=== PATIENT | male | born 1950 | race Caucasian/White ===

== ENCOUNTER 2023-03-11 08:55 | Inpatient (IN) | payer MEDICARE, OTHER ==
[2023-03-09 16:13] LABS: BASOPHILS % (AUTO) 0.4 % (0-1); EOSINOPHILS # (AUTO) 0.1 X10'3 (0-0.9); EOSINOPHILS % (AUTO) 1.5 % (0-6); LYMPHOCYTES # (AUTO) 1.3 X10'3 (1.1-4.8); LYMPHOCYTES % (AUTO) 18.5 % (21-51); MEAN CORPUSCULAR HEMOGLOBIN 28.6 PG (27.0-31.0); MEAN CORPUSCULAR HGB CONC 33.5 g/dL (33.0-36.5); MEAN CORPUSCULAR VOLUME 85.4 FL (78-98); MEAN PLATELET VOLUME 6.5 FL (7.4-10.4); MONOCYTES # (AUTO) 0.6 X10'3 (0-0.9); MONOCYTES % (AUTO) 8.6 % (2-12); NEUTROPHILS # (AUTO) 4.8 X10'3 (1.8-7.7); PRE OP HEMATOCRIT 45.4 % (42.0-52.0); PRE OP HEMOGLOBIN 15.2 g/dL (14.0-17.9); PRE OP PLATELET COUNT 242 X10'3 (140-440); RED BLOOD COUNT 5.32 X10'6 (4.70-6.10); RED CELL DISTRIBUTION WIDTH 15.1 % (11.5-14.5)
[2023-03-09 16:14] LABS: CLARITY,URINE CLEAR (Clear); COLOR,URINE YELLOW (Yellow); GLUCOSE, URINE >=1000 mg/dl (Neg); KETONES,URINE NEGATIVE (Neg); LEUKOCYTE ESTERASE ,URINE NEGATIVE (Neg); NITRITES, URINE NEGATIVE (Neg); OCCULT BLOOD,URINE NEGATIVE (Neg); PROTEIN,URINE NEGATIVE (Neg); UROBILINOGEN,URINE 0.2 E.U/dL (0.2-1.0)
[2023-03-09 16:27] LABS: HEMOGLOBIN A1C 6.1 % (4.5-6.2)
[2023-03-09 16:29] LABS: ALBUMIN 3.6 G/DL (3.4-5.0); ALKALINE PHOSPHATASE 104 IU/L (46-116); BLOOD UREA NITROGEN 15 MG/DL (7-18); BUN/CREATININE RATIO 17.4 (10.0-20.0); CALCIUM 9.1 MG/DL (8.5-10.1); CHLORIDE 105 MMOL/L (99-107); CREATININE 0.86 MG/DL (0.60-1.10); PRE OP ALT 20 U/L (30-65); PRE OP ANION GAP 10 (8-16); PRE OP AST 11 U/L (10-37); PRE OP BILIRUB, TOTAL 0.3 MG/DL (0.0-1.0); PRE OP GLUCOSE 101 MG/DL (70-104); PRE OP SODIUM 142 MMOL/L (135-145); TOTAL CARBON DIOXIDE 26.9 MMOL/L (24-32); TOTAL PROTEIN 7.2 G/DL (6.4-8.2); eGFR 87 ML/MIN
[2023-03-09 16:41] LABS: RBC,URINE NONE SEEN /HPF (0-2); UA COLLECTION TYPE CLN CATCH MIDSTREAM; WBC,URINE NONE SEEN /HPF (0-4)
[2023-03-09 16:42] LABS: BACTERIA,URINE NONE SEEN /HPF (Neg); SQUAMOUS EPITHELIAL CELL,UR FEW /LPF (FEW)
[~2023-03-11] VITALS: Ht 175.3 cm; Wt 96.5 kg
[2023-03-11] VITALS (21 sets, daily range): BP systolic 123–150; BP diastolic 63–84
[~2023-03-11 08:55] MED LIST: AMLO2.5T2 PO; DULA0.75 SQ; EMPA1TAB30 PO; FLO0.4C PO; HYDR-3973 PO; LISI20TA28 PO; LORA-269 PO; ROSU10TA2 PO; ZOLP5TAB8 PO; ceFOXitin 2GM-NS 100mL ADDvant 100 ML IV ONE; famotidine 20mg tablet PO ONE; ringers solution, lacted 1,000 ML IV SCH
[2023-03-11] MEDS ORDERED: morphine 2 MG/ML inj. syringe IV PRN (09:45)
[2023-03-11] MEDS ORDERED: meperidine/PF 25mg/ml syringe IV PRN ×3 (09:45)
[2023-03-11] MEDS ORDERED: ondansetron/PF 4mg/2ml inj IV PRN (09:45)
[2023-03-11] MEDS ORDERED: ringers solution, lacted 1,000 ML IV SCH (09:45)
[2023-03-11] MEDS ORDERED: proCHLORperazine 10 MG/2 ml inj IV PRN (09:45)
[2023-03-11] MEDS ORDERED: morphine 4 MG/ML inj SYRINge IV PRN (09:45)
[2023-03-11] MEDS ORDERED: Potassium Cl inj 20 MEQ in normal saline 1000ml 990 ML IV SCH (10:20)
[2023-03-11] MEDS ORDERED: naloxone 0.4 mg/ml inj IV PRN (10:20)
[2023-03-11] MEDS ORDERED: BUPIVAcaine/PF 2.5 mg/ml (0.25%) 30ml vial ONE ×2 (11:17→11:22)
[2023-03-11] MEDS ORDERED: ceFAZolin 1000mg inj ONE (11:17)
[2023-03-11] MEDS ORDERED: fentaNYL /PF 50mcg/ml 5ml ampule ONE (11:21)
[2023-03-11] MEDS ORDERED: midazolam 1 mg/ML 2ml injection ONE (11:21)
[2023-03-11] MEDS ORDERED: BUPIVACAINE liposomal/PF 13.3 MG/ML vial IM ONE (11:22)
[2023-03-11] MEDS ORDERED: rocuronium 10mg/ml inj IV ONE ×2 (11:22→12:33)
[2023-03-11] MEDS ORDERED: LIDOcaine 1%/PF 5ML 10 MG/ML VIAL ONE (11:22)
[2023-03-11] MEDS ORDERED: propofol inj 20 ML IV ONE (11:22)
[2023-03-11] MEDS ORDERED: sevoflurane 250ml liquid IH ONE (11:32)
[2023-03-11] MEDS ORDERED: dexamethasone sod phosphate 10mg/ml inj ONE (11:32)
[2023-03-11] MEDS ORDERED: acetaminophen 1,000mg/100ml IV 100 ML IV ONE (12:20)
[2023-03-11] MEDS ORDERED: ondansetron/PF 4mg/2ml inj ONE (13:47)
[2023-03-11] MEDS ORDERED: sugammadex 200mg/2ml injection IV ONE (13:53)
--- NOTE | 2023-03-11 14:10 | NUR ---
Received from OR via HOSPITAL BED, accompanied by Anesthesiologist DR STRANGE and report given by Anesthesiologist. PT IS GROGGY BUT RESPONDS TO VERBAL STIMULI AND FOLLOWS COMMANDS. PT PLACED ON BEDSIDE MONITOR, VSS. PT IS IN SR WITH RATE IN 70'S. PT RECEIVING 8L O2 TO MASK AND TOLERATING WELL, WILL TITRATE DOWN PT TOLERATES. PT HAS 20G PIV TO LEFT WRIST WITH LR INFUSING ORDERED. PT HAS MIDLINE ABD DRESSING WITH SCANT DRAINAGE NOTED AND HAS BEEN MARKED. PT DENIES PAIN AT THIS TIME AND IS RESTING COMFORTABLY. WILL CONTINUE TO ASSESS.
[2023-03-11] MEDS: HYDROmorph/NS 0.2 mg/ml PCA 100 ML IV SCH ×6 (14:56→23:00)
--- NOTE | 2023-03-11 16:15 | NUR ---
PATIENT HAS MET ALL CRITERIA FOR TRANSFER TO THE SURGICAL FLOOR. VSS. DRESSINGS INTACT. BED LOW, CALL LIGHT PRESENT AND 2 RAILS UP. RN PRESENT TO ACCEPT CARE OF PATIENT AND REPORT HAS BEEN CALLED TO ARIN GUZMAN. ALL QUESTIONS ANSWERED TO ACCEPTING RN.
[2023-03-11] MEDS: normal saline 1000ml 1,000 ML IV SCH ×2 (16:34→19:54)
--- NOTE | 2023-03-11 18:30 | NUR ---
Problems reprioritized. Patient report given, questions answered & plan of care reviewed with SHAN Bhagat.
--- NOTE | 2023-03-11 18:43 | NUR ---
Patient in room [facility]. I have received report from Saskia TORREZ and had the opportunity to ask questions and assume patient care.
[2023-03-11] MEDS: sennosides/docusate sodium tablet PO SCH (19:51)
[2023-03-11] MEDS: docusate sod 100mg capsule PO SCH (19:51)
[2023-03-11] MEDS: cefoxitin sod inj 2,000 MG in normal saline 100ml IV soln 100 ML IV SCH (21:03)
[2023-03-12] MEDS: HYDROmorph/NS 0.2 mg/ml PCA 100 ML IV SCH ×10 (01:00→19:00)
[2023-03-12] MEDS: cefoxitin sod inj 2,000 MG in normal saline 100ml IV soln 100 ML IV SCH ×3 (04:10→20:20)
[2023-03-12] MEDS: ondansetron/PF 4mg/2ml inj IV PRN ×3 (04:14→21:18)
[2023-03-12] MEDS: potassium Cl 20mEq in NS 1,000 ML IV SCH ×4 (04:20→17:59)
--- NOTE | 2023-03-12 04:23 | NUR ---
PATIENT APPEARS STABLE. Able to pass gas. Dilaudid cadd controlling pain well 4-5. Abdominal dressing minimal drainage observed. Tolerating clear liquid diet.
--- NOTE | 2023-03-12 04:25 | NUR ---
Zofran given x1 for nausea
[2023-03-12 06:00] VITALS: BP 144/73
--- NOTE | 2023-03-12 06:28 | NUR ---
Problems reprioritized. Patient report given, questions answered & plan of care reviewed with Carmen TORREZ.
[2023-03-12 06:37] LABS: ALBUMIN 3.1 G/DL (3.4-5.0); ANION GAP 9 (8-16); BASOPHILS % (AUTO) 0 % (0-1); BLOOD UREA NITROGEN 16 MG/DL (7-18); BUN/CREATININE RATIO 15.1 (10.0-20.0); CALCIUM 8.9 MG/DL (8.5-10.1); CHLORIDE 107 MMOL/L (99-107); CREATININE 1.06 MG/DL (0.60-1.10); EOSINOPHILS % (AUTO) 0 % (0-6); GLUCOSE 135 MG/DL (70-104); LYMPHOCYTES # (AUTO) 0.5 X10'3 (1.1-4.8); LYMPHOCYTES % (AUTO) 2.6 % (21-51); MEAN CORPUSCULAR HEMOGLOBIN 28.1 PG (27.0-31.0); MEAN CORPUSCULAR HGB CONC 32.6 g/dL (33.0-36.5); MEAN CORPUSCULAR VOLUME 86.3 FL (78-98); MEAN PLATELET VOLUME 6.4 FL (7.4-10.4); MONOCYTES # (AUTO) 1.6 X10'3 (0-0.9); MONOCYTES % (AUTO) 8.7 % (2-12); NEUTROPHILS # (AUTO) 16.5 X10'3 (1.8-7.7); NEUTROPHILS % (AUTO) 88.7 % (42-75); PLATELET COUNT 253 X10'3 (140-440); POTASSIUM 4.4 MMOL/L (3.5-5.1); RED BLOOD COUNT 4.99 X10'6 (4.70-6.10); RED CELL DISTRIBUTION WIDTH 15.3 % (11.5-14.5); SODIUM 142 MMOL/L (135-145); TOTAL CARBON DIOXIDE 25.8 MMOL/L (24-32); WHITE BLOOD COUNT 18.6 X10'3 (4.5-11.0); eGFR 68 ML/MIN
--- NOTE | 2023-03-12 06:53 | NUR ---
Patient in room [facility]. I have received report from nicci ptael and had the opportunity to ask questions and assume patient care.
[2023-03-12] MEDS: docusate sod 100mg capsule PO SCH ×2 (08:54→20:21)
[2023-03-12] MEDS: sennosides/docusate sodium tablet PO SCH ×2 (08:54→20:20)
[2023-03-12] MEDS: PCA WASTE DOCUMENTATION 1 MG ML MC SCH (10:38)
[2023-03-12 11:00] VITALS: BP 156/90
--- NOTE | 2023-03-12 23:41 | NUR ---
Pt. is awake alert oriented in no acute distress no c/o pain at abd site dressing dry and intact. 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 Taking po fluids, meds and ice chips well. Maxwell with kerline clear urine. Plan ambulate in am monitor ABALONE SHELLER pain med.
[2023-03-13] MEDS: cefoxitin sod inj 2,000 MG in normal saline 100ml IV soln 100 ML IV SCH ×3 (03:30→19:20)
[2023-03-13] MEDS: potassium Cl 20mEq in NS 1,000 ML IV SCH ×3 (05:05→21:05)
--- NOTE | 2023-03-13 05:30 | NUR ---
BP rechecked after nausea med given 159/80. IV decreased to KO.
[2023-03-13] MEDS: ondansetron/PF 4mg/2ml inj IV PRN ×2 (05:45→19:20)
--- NOTE | 2023-03-13 06:55 | NUR ---
Patient in room [facility]. I have received report from adarsh rn and had the opportunity to ask questions and assume patient care.
[2023-03-13 06:56] VITALS: BP 159/80
[2023-03-13 06:59] LABS: BASOPHILS % (AUTO) 0.1 % (0-1); EOSINOPHILS % (AUTO) 0 % (0-6); HEMATOCRIT 39.8 % (42.0-52.0); HEMOGLOBIN 13.1 g/dl (14.0-17.9); LYMPHOCYTES # (AUTO) 0.5 X10'3 (1.1-4.8); LYMPHOCYTES % (AUTO) 2.9 % (21-51); MEAN CORPUSCULAR HEMOGLOBIN 28.1 PG (27.0-31.0); MEAN CORPUSCULAR HGB CONC 32.8 g/dL (33.0-36.5); MEAN CORPUSCULAR VOLUME 85.6 FL (78-98); MEAN PLATELET VOLUME 6.8 FL (7.4-10.4); MONOCYTES % (AUTO) 6.1 % (2-12); NEUTROPHILS % (AUTO) 90.9 % (42-75); PLATELET COUNT 205 X10'3 (140-440); RED BLOOD COUNT 4.65 X10'6 (4.70-6.10); RED CELL DISTRIBUTION WIDTH 15.3 % (11.5-14.5); WHITE BLOOD COUNT 16.5 X10'3 (4.5-11.0)
[2023-03-13] MEDS: HYDROmorph/NS 0.2 mg/ml PCA 100 ML IV SCH ×9 (07:00→23:00)
[2023-03-13 07:20] LABS: ALBUMIN 2.8 G/DL (3.4-5.0); ANION GAP 8 (8-16); BLOOD UREA NITROGEN 13 MG/DL (7-18); BUN/CREATININE RATIO 16.7 (10.0-20.0); CHLORIDE 104 MMOL/L (99-107); CREATININE 0.78 MG/DL (0.60-1.10); GLUCOSE 114 MG/DL (70-104); POTASSIUM 3.9 MMOL/L (3.5-5.1); SODIUM 139 MMOL/L (135-145); TOTAL CARBON DIOXIDE 26.7 MMOL/L (24-32); eGFR > 90 ML/MIN
[2023-03-13] MEDS: docusate sod 100mg capsule PO SCH ×2 (08:27→19:20)
[2023-03-13] MEDS: sennosides/docusate sodium tablet PO SCH ×2 (08:27→19:20)
[2023-03-13 10:00] VITALS: BP 171/85
[2023-03-13] MEDS: normal saline 1000ml 1,000 ML IV SCH (10:20)
[2023-03-13] MEDS ORDERED: zolpidem 5mg tablet PO PRN (13:30)
[2023-03-13] MEDS: LINAGLIPTIN PO SCH (13:45)
[2023-03-13] MEDS ORDERED: linagliptin 5mg tablet PO SCH (13:45)
[2023-03-13] MEDS: EMPAGLIFLOZIN PO SCH (13:45)
[2023-03-13] MEDS: METFORMIN PO SCH (13:45)
[2023-03-13] MEDS: [UNRECOGNIZED DRUG - OTHER] PO SCH (13:45)
[2023-03-13] MEDS: tamsulosin 0.4mg capsule PO SCH (13:49)
[2023-03-13] MEDS: amLODIPine 2.5mg tablet PO SCH (13:49)
[2023-03-13] MEDS: lisinopril 20mg tablet PO SCH (13:50)
[2023-03-13 18:00] VITALS: BP 156/96
--- NOTE | 2023-03-13 18:40 | NUR ---
Patient in room [facility]. I have received report from LUIS TORREZ and had the opportunity to ask questions and assume patient care.
[2023-03-13] MEDS: enoxaparin 40mg/0.4ml syringe SUBCUT SCH ×2 (19:21→20:58)
[2023-03-13] MEDS: atorvastatin 20mg tablet PO SCH (21:18)
[2023-03-13 22:00] VITALS: BP 112/71
[2023-03-14] MEDS: potassium Cl 20mEq in NS 1,000 ML IV SCH ×3 (00:09→19:55)
[2023-03-14] MEDS: HYDROmorph/NS 0.2 mg/ml PCA 100 ML IV SCH ×6 (01:00→11:00)
[2023-03-14] MEDS: cefoxitin sod inj 2,000 MG in normal saline 100ml IV soln 100 ML IV SCH ×3 (03:34→19:54)
[2023-03-14 06:17] LABS: BASOPHILS % (AUTO) 0 % (0-1); EOSINOPHILS % (AUTO) 0.1 % (0-6); HEMATOCRIT 41.6 % (42.0-52.0); LYMPHOCYTES # (AUTO) 0.4 X10'3 (1.1-4.8); LYMPHOCYTES % (AUTO) 4.1 % (21-51); MEAN CORPUSCULAR HEMOGLOBIN 28.8 PG (27.0-31.0); MEAN CORPUSCULAR HGB CONC 33.5 g/dL (33.0-36.5); MEAN PLATELET VOLUME 7.1 FL (7.4-10.4); MONOCYTES # (AUTO) 0.7 X10'3 (0-0.9); MONOCYTES % (AUTO) 7.1 % (2-12); NEUTROPHILS # (AUTO) 8.8 X10'3 (1.8-7.7); NEUTROPHILS % (AUTO) 88.7 % (42-75); PLATELET COUNT 221 X10'3 (140-440); RED BLOOD COUNT 4.84 X10'6 (4.70-6.10); RED CELL DISTRIBUTION WIDTH 15.2 % (11.5-14.5); WHITE BLOOD COUNT 9.9 X10'3 (4.5-11.0)
[2023-03-14 06:28] LABS: ALBUMIN 2.3 G/DL (3.4-5.0); ANION GAP 10 (8-16); BLOOD UREA NITROGEN 19 MG/DL (7-18); BUN/CREATININE RATIO 22.4 (10.0-20.0); CALCIUM 9.3 MG/DL (8.5-10.1); CHLORIDE 105 MMOL/L (99-107); CREATININE 0.85 MG/DL (0.60-1.10); GLUCOSE 126 MG/DL (70-104); POTASSIUM 3.9 MMOL/L (3.5-5.1); SODIUM 143 MMOL/L (135-145); TOTAL CARBON DIOXIDE 27.8 MMOL/L (24-32); eGFR 88 ML/MIN
--- NOTE | 2023-03-14 07:00 | NUR ---
Patient in room [facility]. I have received report from Brittaney TORREZ and had the opportunity to ask questions and assume patient care.
[2023-03-14 07:21] VITALS: BP 160/79
[2023-03-14] MEDS: tamsulosin 0.4mg capsule PO SCH (07:54)
[2023-03-14] MEDS: docusate sod 100mg capsule PO SCH ×2 (07:55→20:47)
[2023-03-14] MEDS: sennosides/docusate sodium tablet PO SCH ×2 (07:55→20:47)
[2023-03-14] MEDS: amLODIPine 2.5mg tablet PO SCH (07:55)
[2023-03-14] MEDS: lisinopril 20mg tablet PO SCH (07:56)
[2023-03-14] MEDS: ondansetron/PF 4mg/2ml inj IV PRN ×2 (07:59→18:44)
[2023-03-14] MEDS ORDERED: DULAGLUTIDE 0.75 MG/0.5 ML SQ SCH (08:00)
[2023-03-14] MEDS: LINAGLIPTIN PO SCH (08:00)
[2023-03-14] MEDS ORDERED: HYDROcodone/acetaminophen 10/325mg tab PO PRN (08:00)
[2023-03-14] MEDS: METFORMIN PO SCH (08:00)
[2023-03-14] MEDS: EMPAGLIFLOZIN PO SCH (08:00)
[2023-03-14] MEDS: [UNRECOGNIZED DRUG - OTHER] PO SCH (08:00)
[2023-03-14 10:58] VITALS: BP 167/90
[2023-03-14] MEDS: PCA WASTE DOCUMENTATION 1 MG ML MC SCH (11:35)
[2023-03-14] MEDS: HYDROcodone/acetaminophen 10/325mg tab PO PRN ×3 (12:55→22:52)
[2023-03-14] MEDS: LORazepam 1 MG tablet PO PRN (16:23)
[2023-03-14 18:00] VITALS: BP 144/74
--- NOTE | 2023-03-14 18:32 | NUR ---
Patient in room [facility]. I have received report from Brittaney TORREZ and had the opportunity to ask questions and assume patient care.
--- NOTE | 2023-03-14 19:02 | NUR ---
Patient in room [facility]. I have received report from KARINA TORREZ and had the opportunity to ask questions and assume patient care.
--- NOTE | 2023-03-14 19:23 | NUR ---
Patient in room [facility]. I have received report from KARINA TORREZ and had the opportunity to ask questions and assume patient care.
[2023-03-14] MEDS: enoxaparin 40mg/0.4ml syringe SUBCUT SCH (20:00)
[2023-03-14] MEDS: atorvastatin 20mg tablet PO SCH (20:47)
[2023-03-14 23:00] VITALS: BP 136/69
[2023-03-15] MEDS: LORazepam 1 MG tablet PO PRN (00:51)
[2023-03-15] MEDS: cefoxitin sod inj 2,000 MG in normal saline 100ml IV soln 100 ML IV SCH (04:11)
[2023-03-15] MEDS: HYDROcodone/acetaminophen 10/325mg tab PO PRN ×2 (04:56→10:18)
--- NOTE | 2023-03-15 05:01 | NUR ---
DANIAL GUZMAN documentation: I have reviewed and agree with all interventions, assessments performed and documented by DANIAL GUZMAN.
[2023-03-15] MEDS: potassium Cl 20mEq in NS 1,000 ML IV SCH (05:05)
--- NOTE | 2023-03-15 06:05 | NUR ---
Problems reprioritized. Patient report given to lizy patel, questions answered & plan of care reviewed with .
--- NOTE | 2023-03-15 06:23 | NUR ---
Problems reprioritized. Patient report given, questions answered & plan of care reviewed with KARINA TORREZ.
[2023-03-15 06:41] VITALS: BP 153/78
--- NOTE | 2023-03-15 06:42 | NUR ---
Patient in room [facility]. I have received report from Brittaney TORREZ and had the opportunity to ask questions and assume patient care.
[2023-03-15] MEDS: tamsulosin 0.4mg capsule PO SCH (07:20)
[2023-03-15] MEDS: lisinopril 20mg tablet PO SCH (07:20)
[2023-03-15] MEDS: amLODIPine 2.5mg tablet PO SCH (07:21)
[2023-03-15] MEDS: sennosides/docusate sodium tablet PO SCH (07:21)
[2023-03-15] MEDS: docusate sod 100mg capsule PO SCH (07:21)
[2023-03-15] MEDS: [UNRECOGNIZED DRUG - OTHER] PO SCH (07:22)
[2023-03-15] MEDS: METFORMIN PO SCH (07:22)
[2023-03-15] MEDS: LINAGLIPTIN PO SCH (07:22)
[2023-03-15] MEDS: EMPAGLIFLOZIN PO SCH (07:22)
[2023-03-15] MEDS ORDERED: HYDR-3972 PO (09:54)
[2023-03-15 11:02] VITALS: BP 146/83
--- NOTE | 2023-03-15 12:33 | NUR ---
Discharge orders received, reviewed with Patient and spouse, understanding verbalized. IV removed with cannula intact, patient tolerated well. Patient escorted to lobby with belongings and spouse by staff.
== END 2023-03-15 12:17 | disposition home or self-care (01) | DRG 331 ==
LOC: PAS IN 08:55 → SUR 3N 16:20
PROVIDERS: ADMIT Surgery; ATTEND Surgery
PROC: 07BB4ZX Excision of Mesenteric Lymphatic, Percutaneous Endoscopic Approach, Diagnostic (ICD-10-PCS; 2023-03-11)
PROC: 3E0T3BZ Introduction of Anesthetic Agent into Peripheral Nerves and Plexi, Percutaneous Approach (ICD-10-PCS; 2023-03-11)
PROC: 3E0T33Z Introduction of Anti-inflammatory into Peripheral Nerves and Plexi, Percutaneous Approach (ICD-10-PCS; 2023-03-11)
PROC: 0DTG4ZZ Resection of Left Large Intestine, Percutaneous Endoscopic Approach (ICD-10-PCS; principal; 2023-03-11 11:32)
DX: C18.6 Malignant neoplasm of descending colon (principal); E11.9 Type 2 diabetes mellitus without complications; I10 Essential (primary) hypertension; R59.9 Enlarged lymph nodes, unspecified; D73.5 Infarction of spleen
CPT/HCPCS: 36415; 80048; 80053; 81001; 82948; 83036; 85025; 86885; 86900; 86901; 87081; 88309; 93005; A4215; A4618; A7000; C1758; C9290; G0378; J0131; J0690; J0694; J1100; J1170; J1650; J2175; J2250; J2405; J2704; J3010; J3480; J3490; J7030; J7040; J7120